=== PATIENT | female | born 2000 | race Caucasian/White ===

== ENCOUNTER 2022-08-09 10:01 | Inpatient (IN) | payer MEDICAID ==
[~2022-08-09] VITALS: Ht 149.9 cm; Wt 94.3 kg
[2022-08-09] MEDS ORDERED: METHYLERGONOVINE 0.2 MG/ML AMP IM PRN (10:50)
[2022-08-09] MEDS ORDERED: OXYTOCIN 20 UNITS in LACTATED RINGERS 1,000 ML IV SCH (10:50)
[2022-08-09] MEDS ORDERED: PRETAB PO (10:54)
[2022-08-09] MEDS ORDERED: ONDANSETRON 4 MG/2 ML VIAL IVP PRN (10:55)
[2022-08-09] MEDS ORDERED: AMPICILLIN 2,000 MG in NACL 0.9% 100 ML IV SCH (10:55)
[2022-08-09] MEDS ORDERED: AMPICILLIN 2,000 MG VIAL ONE (11:10)
[2022-08-09] MEDS ORDERED: TERBUTALINE 1 MG/ML VIAL SUBQ ONE ×2 (11:13→12:08)
[2022-08-09] MEDS ORDERED: MORPHINE SULFATE 10 MG/ML VIAL IVP PRN (11:15)
[2022-08-09] MEDS: LACTATED RINGERS 1,000 ML IV SCH ×3 (11:17→21:42)
[2022-08-09] MEDS: BETAMETH ACET/BETAMETH NA PH 30 MG/5 ML VIAL IM SCH (11:27)
[2022-08-09 11:31] LABS: BASOPHILS % (AUTO) 0.4 % (0.0-2.0); EOSINOPHILS # (AUTO) 0.3 K/uL (0-0.4); HEMATOCRIT 36.5 % (36-48); HEMOGLOBIN 12.6 g/dL (12.0-16.0); LYMPHOCYTES % (AUTO) 19.9 % (20.5-51.1); MEAN CORPUSCULAR HEMOGLOBIN 29 pg (27-31); MEAN CORPUSCULAR HGB CONC 35 g/dL (33-37); MEAN CORPUSCULAR VOLUME 85.1 fL (80-94); MONOCYTES # (AUTO) 0.7 K/uL (0.8-1.0); MONOCYTES % (AUTO) 6.7 % (1.7-9.3); NEUTROPHILS # (AUTO) 6.9 K/uL (1.8-7.7); PLATELET COUNT (AUTO) 254 K/uL (140-450); RED BLOOD CELL COUNT(AUTO) 4.29 MIL/uL (4.20-5.40); RED CELL DISTRIBUTION WIDTH 13.5 % (11.6-13.7); WHITE BLOOD COUNT (AUTO) 9.9 K/uL (4.8-10.8)
[2022-08-09 11:37] LABS: APPEARANCE,URINE CLEAR (CLEAR); BILIRUBIN,URINE NEGATIVE (NEGATIVE); BLOOD, URINE 3+ (NEGATIVE); COLOR,URINE YELLOW (YELLOW); LEUKOCYTE ESTERASE ,URINE 2+ (NEGATIVE); NITRITE, URINE NEGATIVE (NEGATIVE); UGLUCOSE NEGATIVE (NEGATIVE)
[2022-08-09 12:12] LABS: RBC,URINE 11-20 (MOD) /HPF (0-5); WBC,URINE 0-5 /HPF (0-5)
[2022-08-09 12:15] VITALS: BP 123/77
[2022-08-09] MEDS ORDERED: TERBUTALINE 1 MG/ML VIAL SUBQ SCH (12:20)
[2022-08-09 12:37] LABS: ALBUMIN 3.2 g/dL (3.4-5.0); ANION GAP 14.9 (8-16); CARBON DIOXIDE 22.9 mmol/L (21-32); CREATININE 0.7 mg/dL (0.6-1.3); POTASSIUM 3.8 mmol/L (3.5-5.1); TOTAL BILIRUBIN 0.3 mg/dL (0.0-1.0)
[2022-08-09] MEDS ORDERED: OXYTOCIN 20 UNITS/LR PREMIX 1,000 ML IV ONE (12:46)
[2022-08-09 13:05] VITALS: BP 123/77
[2022-08-09] MEDS ORDERED: ROPIVACAINE 0.2%/NS PREMIX 200 ML EPI ONE (13:25)
[2022-08-09] MEDS ORDERED: fentaNYL citrate 0.05 MG/ML VIAL ONE (13:54)
[2022-08-09] MEDS ORDERED: NIFEdipine 10 MG CAPLF ONE (14:46)
[2022-08-09] MEDS ORDERED: AMPICILLIN 1,000 MG in NACL 0.9% 50 ML IV SCH (15:00)
[2022-08-09] MEDS ORDERED: NIFEdipine 10 MG CAPLF PO SCH (15:00)
[2022-08-09] MEDS ORDERED: AMPICILLIN 1,000 MG VIAL ONE (18:28)
[2022-08-09] MEDS: NIFEdipine 10 MG CAPLF PO SCH (20:57)
[2022-08-10] MEDS: NIFEdipine 10 MG CAPLF PO SCH ×2 (02:56→09:44)
[2022-08-10] MEDS: LACTATED RINGERS 1,000 ML IV SCH (06:28)
--- NOTE | 2022-08-10 09:45 | NUR ---
PATIENT HAS BEEN SCREENED AND CATEGORIZED LOW NUTRITION RISK. PATIENT WILL BE SEEN WITHIN 7 DAYS OF ADMISSION. 08/16/22 REVIEWED BY NOMAN [address]UST[address]
[2022-08-10] MEDS: BETAMETH ACET/BETAMETH NA PH 30 MG/5 ML VIAL IM SCH (11:48)
[2022-08-10] MEDS ORDERED: ROPIVACAINE 0.2%/NS PREMIX 200 ML EPI ONE (12:21)
[2022-08-10] MEDS ORDERED: LIDOCAINE 1% 500 MG/50 ML VIAL ONE (21:15)
[2022-08-10] MEDS ORDERED: IBUPROFEN 800 MG TAB PO PRN (21:25)
[2022-08-10] MEDS ORDERED: bisacodyL 5 MG TABEC PO PRN (21:25)
[2022-08-10] MEDS ORDERED: METHYLERGONOVINE 0.2 MG/ML AMP IM PRN (21:25)
[2022-08-10] MEDS ORDERED: SIMETHICONE 80 MG TAB.CHEW PO PRN (21:25)
[2022-08-10] MEDS ORDERED: OXYTOCIN 10 UNITS/ML VIAL IM PRN (21:25)
[2022-08-10] MEDS ORDERED: MEASLES, MUMPS, AND RUBELLA 1 VIAL SQVAC ONE (21:25)
[2022-08-10] MEDS ORDERED: BENZOCAINE/MENTHOL 20%-0.5% 60 GM CAN TP PRN (21:25)
[2022-08-10] MEDS ORDERED: METHYLERGONOVINE 0.2 MG TAB PO PRN (21:25)
[2022-08-10] MEDS ORDERED: DOCUSATE SODIUM 100 MG GELCAP PO PRN (21:25)
[2022-08-11] MEDS ORDERED: LIDOCAINE 1% 500 MG/ 50 ML VIAL INJ SCH (06:30)
[2022-08-11 07:54] LABS: HEMATOCRIT 30.8 % (36-48); HEMOGLOBIN 10.6 g/dL (12.0-16.0)
[2022-08-11] MEDS: IBUPROFEN 600 MG TAB PO PRN (15:57)
[2022-08-12] MEDS: IBUPROFEN 600 MG TAB PO PRN (05:19)
== END 2022-08-12 16:25 | disposition home or self-care (01) | DRG 560 ==
LOC: MLD 10:01 → OBSVTOIN 10:10 → MFCC 08-11 00:20
PROVIDERS: ADMIT Obstetrics & Gynecology; ATTEND Obstetrics & Gynecology
PROC: 10E0XZZ Delivery of Products of Conception, External Approach (ICD-10-PCS; principal; 2022-08-10)
PROC: 3E0R3BZ Introduction of Anesthetic Agent into Spinal Canal, Percutaneous Approach (ICD-10-PCS; 2022-08-10)
PROC: 00HU33Z Insertion of Infusion Device into Spinal Canal, Percutaneous Approach (ICD-10-PCS; 2022-08-10)
DX: O60.14X0 Preterm labor third trimester with preterm delivery third trimester, not applicable or unspecified (principal); Z37.0 Single live birth; O77.0 Labor and delivery complicated by meconium in amniotic fluid; Z20.822 Contact with and (suspected) exposure to COVID-19; Z3A.36 36 weeks gestation of pregnancy
CPT/HCPCS: 36415; 51702; 59409; 80053; 81001; 85018; 85025; 85610; 85730; 86592; 86886; 86900; 86901; 87086; 87653-90; J0290; J0702; J2001; J2270; J2405; J2590; J2795; J3010; J3105; J7120